=== PATIENT | female | born 1965 | race Caucasian/White ===

== ENCOUNTER 2020-09-14 15:40 | Outpatient (CLI) | payer OTHER | END 2020-09-14 15:41 | disposition home or self-care (01) | LOC: COV 15:40 | PROVIDERS: ATTEND Family Medicine | DX: R50.9 Fever, unspecified (principal); M79.10 Myalgia, unspecified site; R53.83 Other fatigue; J02.9 Acute pharyngitis, unspecified; R11.2 Nausea with vomiting, unspecified; Z20.828 Contact with and (suspected) exposure to other viral communicable diseases ==

== ENCOUNTER 2021-05-17 08:00 | Outpatient (CLI) | payer OTHER ==
[2021-05-17 19:53] LABS: BASOPHILS # (AUTO) 0.1 10^3/uL (0.0-0.1); BASOPHILS % (AUTO) 1.1 %; EOSINOPHILS # (AUTO) 0.1 10^3/uL (0.0-0.7); EOSINOPHILS % (AUTO) 1.1 %; HCT - HEMATOCRIT 39.9 % (37.0-47.0); HGB - HEMOGLOBIN 13.2 g/dL (12.0-16.0); LYMPHOCYTES # (AUTO) 1.4 10^3/uL (1.5-3.5); LYMPHOCYTES % (AUTO) 30.3 %; MEAN CORPUSCULAR HEMOGLOBIN 31.7 pg (27.0-31.0); MEAN CORPUSCULAR HGB CONC 33.1 g/dL (32.0-36.0); MEAN CORPUSCULAR VOLUME 95.9 fL (81.0-99.0); MEAN PLATELET VOLUME 11.9 fL (7.9-10.8); MONOCYTES # (AUTO) 0.3 10^3/uL (0.0-1.0); MONOCYTES % (AUTO) 5.9 %; NEUTROPHILS # (AUTO) 2.9 10^3/uL (1.5-6.6); NEUTROPHILS % (AUTO) 61.4 %; PLT - PLATELET COUNT 291 10^3/uL (130-450); RED BLOOD COUNT 4.16 10^6/uL (4.20-5.40); RED CELL DISTRIBUTION WIDTH 12.5 % (12.0-15.0); WHITE BLOOD COUNT 4.8 x10^3/uL (4.8-10.8)
[2021-05-17 20:05] LABS: ALBUMIN 4.8 g/dL (3.2-5.5); ALBUMIN/GLOBULIN RATIO 1.8 (1.0-2.2); BILIRUBIN,TOTAL 0.7 mg/dL (0.2-1.0); CALCIUM 9.8 mg/dL (8.5-10.3); CREATININE 0.7 mg/dL (0.4-1.0); POTASSIUM 4.1 mmol/L (3.5-5.0); TOTAL PROTEIN 7.5 g/dL (6.7-8.2)
[2021-05-25 18:17] LABS: 18 KD (IGG) BAND NON-REACTIVE; 23 KD (IGG) BAND NON-REACTIVE; 23 KD (IGM) BLOT NON-REACTIVE; 28 KD (IGG) BAND NON-REACTIVE; 30 KD (IGG) BAND NON-REACTIVE; 39 KD (IGG) BAND NON-REACTIVE; 39 KD (IGM) BLOT NON-REACTIVE; 41 KD (IGG) BAND REACTIVE; 41 KD (IGM) BLOT NON-REACTIVE; 45 KD (IGG) BAND NON-REACTIVE; 58 KD (IGG) BAND NON-REACTIVE; 66 KD (IGG) BAND NON-REACTIVE; 93 KD (IGG) BAND NON-REACTIVE
== END 2021-05-17 23:59 | disposition home or self-care (01) ==
LOC: LAB.S 08:00
PROVIDERS: ATTEND Physician Assistant Medical
DX: R51.9 Headache, unspecified (principal); W57.XXXA Bitten or stung by nonvenomous insect and other nonvenomous arthropods, initial encounter
CPT/HCPCS: 36415; 80053; 85025; 85651; 86617

== ENCOUNTER 2023-04-24 11:16 | Emergency (ER) | payer OTHER ==
--- OUTSIDE RECORDS SUMMARY | 2023-04-24 11:48 | EXTERNAL MEDICAL SUMMARY RPT | Continuity of Care Document ---
Author Name Unknown Address [address] [place] [address] Phone Organization [facility] Address [address] [place] [address] Phone Care Team Providers Care Fire Alarm Technician Name Role Phone Unavailable Unavailable Unavailable Dell Pena, Elijah Unavailable Unavailable Medications date description facility 2023-02-22 00:00 [facility] 2023-03-01 00:00 [facility] 2023-02-22 00:00 [facility] 2023-03-01 00:00 [facility] 2023-02-22 00:00 [facility]radiol [facility] 2023-03-01 00:00 [facility]radiol [facility] 2023-02-22 00:00 estradiol [facility] 2023-03-01 00:00 estradiol [facility] Problems date description facility 2023-02-21 00:00 Dysfunction of Eustachian tube [facility] 2023-02-21 00:00 Dysfunction of eustachian tube [facility] 2023-02-21 00:00 Other specified diso rders of Eustachian tube, left ear [facility] Procedures date description facility 2023-02-21 00:00 Visit Code Hold [facility] Social History date description facility 2023-02-21 00:00 Never smoker [facility] Vital Signs date measurement value units 2023-02-21 00:00 BMI 22.41 kg/m2 2023-02-21 00:00 BP_diastolic 77 mmHg 2023-02-21 00:00 BP_systolic 115 mmHg 2023-02-21 00:00 heart_rate 59 /min 2023-02-21 00:00 height_metric 165.1 cm 2023-02-21 00:00 height_standard 65 in 2023-02-21 00:00 respiration_rate 17 /min 2023-02-21 00:00 weight_metric 60.87 kg 2023-02-21 00:00 weight_standard 134.2 lb
[2023-04-24] MEDS ORDERED: KETOROLAC 60 MG/2 ML VIAL IM STA (12:07)
[2023-04-24] MEDS ORDERED: oxyCODONE 5 MG TABLET PO STA (12:08)
[2023-04-24] MEDS ORDERED: CYCLOBENZAPRINE 10 MG TABLET PO STA (12:08)
[2023-04-24] MEDS ORDERED: DEXAMETHASONE 10 MG/ML VIAL IM STA (12:08)
--- NOTE | 2023-04-24 12:09 | ED Physician Documentation ---
History of Present Illness - Stated complaint Stated Complaint: LOWER BACK PX - Chief complaint Chief Complaint: Back Pain - History obtained from History obtained from: Patient - Additonal information Additional information: 57-year-old woman with history of sciatica was bending over about a week ago picking up a stock bicycle and suddenly developed severe low back pain which got better slowly but then got much worse again yesterday. Its been its worse with twisting, bending and sitting. She denies saddle anesthesia, incontinence, fevers, lower extremity numbness or tingling or radiation of the pain. PD PAST MEDICAL HISTORY - Past Medical History Past Medical History: Yes Musculoskeletal: Chronic back pain - Present Medications Home Medications: Ambulatory Orders Medication Instructions Recorded Confirmed Cyclobenzaprine [Flexeril] 10 mg PO TID PRN #20 tablet 04/24/23 Ibuprofen [Motrin] 600 mg PO Q6H PRN #30 tab 04/24/23 Lidocaine Patch 5% [Lidoderm Patch] 1 patch TOP DAILY PRN #10 patch 04/24/23 Oxycodone HCl/Acetaminophen 1 - 2 each PO Q6H PRN #14 tablet 04/24/23 [Percocet 5-325 mg Tablet] predniSONE [Deltasone] 20 mg PO [id number] #21 tab 04/24/23 - Allergies Allergies/Adverse Reactions: Allergies Allergy/AdvReac Type Severity Reaction Status Date / Time No Known Drug Allergies Allergy Verified 04/24/23 11:33 - Social History Does the pt smoke?: No Smoking Status: Never smoker PD ED PE NORMAL - Vitals Vital signs reviewed: Yes - General General: Alert and oriented X 3, Other (Standing up and discomfort with moving) - Back Back: No spinal TTP, Other (Tender to the paralumbar muscles bilaterally) - Extremities Extremities: Other (The patient has equal and normal Achilles and patellar reflexes bilaterally. Normal sensation in all areas of the legs. Patient denies saddle anesthesia. Normal strength in flexion-extension at the ankles, knees, and flexion of the hips.) Results - Vitals Vitals: Vital Signs - 24 hr 04/24/23 11:30 Temperature 36.0 C L Heart Rate 71 Respiratory 16 Rate Blood Pressure 129/62 O2 Saturation 100 Oxygen O2 Source Room air - Rads (name of study) Lumbar spine x-ray showing no acute issues, chronic and degenerative changes better seen on prior MRI Relevant Findings:: Final report received, EMP independent interpretation of test PD Medical Decision Making - ED course ED course: 57-year-old woman with an acute exacerbation of low back pain, came on suddenly while lifting a heavy stuck object so consideration for compression fracture and an x-ray was done for same and negative. This patient has seemingly uncomplicated musculoskeletal back pain. The patient has no "red flags." Specifically denies IV drug use, fevers, incontinence, saddle anesthesia. Spinal epidural abscess was considered, given that the patient has no fever, is not diabetic, has no spinal tenderness, does not use IV drugs, and has no bilateral neurologic symptoms, the diagnosis of spinal epidural abscess is considered exceedingly unlikely. Departure - Departure Disposition: Home, Self Care Clinical Impression: Back pain Condition: Good Record reviewed to determine appropriate education?: Yes Instructions: ED Low Back Pain Injury Prescriptions: predniSONE [Deltasone] 20 mg PO [id number] #21 tab Cyclobenzaprine [Flexeril] 10 mg PO TID PRN #20 tablet PRN Reason: Spasms Lidocaine Patch 5% [Lidoderm Patch] 1 patch TOP DAILY PRN #10 patch PRN Reason: pain Ibuprofen [Motrin] 600 mg PO Q6H PRN #30 tab PRN Reason: Pain Oxycodone HCl/Acetaminophen [Percocet 5-325 mg Tablet] 1 - 2 each PO Q6H PRN #14 tablet PRN Reason: pain Comments: I sent your prescription electronically to [facility] in [place]. Heat, gentle stretching is advised and relative rest. Follow-up with your primary care physician on return home, consider rereferral to physical therapy. For the pain: 1. The ibuprofen nonsteroidal anti-inflammatory drugs should be your base and should be taken scheduled. You can also take Tylenol as needed but note that the oxycodone also has Tylenol in it so you should not take too much. 2. The prednisone steroid can be started tomorrow as you got a similar medication as a shot here. Best taken in the morning as it can give insomnia. 3. The lidocaine patches also should be used fairly regularly given lack of significant side effects. 4. The oxycodone/acetaminophen is a little more powerful and best used for severe pain. 5. Flexeril/cyclobenzaprine is a muscle relaxer, also slightly sedating. I am prescribing a short course of narcotic pain medication for you. These are potentially dangerous and addictive medications that should be used carefully. These medications may constipate you. Take an zkne-yzw-yqaohri stool softener (docusate) twice daily with plenty of water while taking these medications. If you go 24 hours without a bowel movement, take char-hzv-myfjkvu miralax, per package instructions. Do not drink or drive while taking these medications. If you received narcotic or sedating medications while in the emergency department, do not drive for 24 hours. Store this medication in a safe, secure place and out of reach of children. It is a violation of federal law to give or sell this medication to another person or to use in a manner other than prescribed. The ED will not refill narcotic prescriptions, including prescriptions lost or stolen. To dispose of unwanted medications: 1. [facility] provides a drop box for medication in pill form only (no liquids) 8:00 am to 4:30 p.m. Monday-Monday in the lobby of the [facility], [address] [place] [address]. Empty pills into ziplock bag before disposal. Call [phone] for information. 2.[employer] is a free service available to all [facility] residents. Go to [email or web address] Note that many narcotic pain relievers also contain Tylenol/acetaminophen. Please ensure that your total dose of acetaminophen from all sources does not exceed 3 g (3000 mg) per day. Forms: Activity restrictions
--- NOTE | 2023-04-24 12:40 | XRAY Report ---
PROCEDURE: Lumbar Spine 2 View INDICATIONS: back inj. Low back pain from twisting/lifting. TECHNIQUE: 2 views of the lumbar spine were acquired. COMPARISON: None. FINDINGS: Bones: 5 nex-czm-aofgklh vertebrae are present. Slight rightward curvature. Mild disc height loss at L4-5, L5-S1 and L2-3. Facet arthrosis L4-5 and L5-S1. Soft tissues: Overlying bowel gas pattern is normal. No suspicious soft tissue calcifications. Pun ctate calcified indications projecting of the right kidney, likely nephrolithiasis. IMPRESSION: No displaced fracture or traumatic subluxation. Mild, multilevel degenerative disc disease and lower lumbar facet arthrosis. Reviewed by: Paco Mallory on 04/24/2023 12:39 PM PDT Approved by: Paco Mallory on 04/24/2023 12:39 PM PDT Station ID: [id number]
[2023-04-24 13:06] VITALS: BP 122/60
== END 2023-04-24 13:01 | disposition home or self-care (01) ==
LOC: ED 11:16
DX: M54.50 Low back pain, unspecified (principal); X50.0XXA Overexertion from strenuous movement or load, initial encounter
CPT/HCPCS: 72100; 96372; 99284; A9270

== ENCOUNTER 2023-05-19 10:23 | Outpatient (CLI) | payer OTHER ==
[2023-05-19 14:53] LABS: BASOPHILS % (AUTO) 1.3 %; EOSINOPHILS # (AUTO) 0.1 10^3/uL (0.0-0.7); EOSINOPHILS % (AUTO) 4.4 %; HCT - HEMATOCRIT 40.2 % (37.0-47.0); LYMPHOCYTES # (AUTO) 1.2 10^3/uL (1.5-3.5); LYMPHOCYTES % (AUTO) 38.2 %; MEAN CORPUSCULAR HEMOGLOBIN 31.5 pg (27.0-31.0); MEAN CORPUSCULAR HGB CONC 32.3 g/dL (32.0-36.0); MEAN CORPUSCULAR VOLUME 97.3 fL (81.0-99.0); MEAN PLATELET VOLUME 11.2 fL (7.9-10.8); MONOCYTES # (AUTO) 0.3 10^3/uL (0.0-1.0); NEUTROPHILS # (AUTO) 1.5 10^3/uL (1.5-6.6); NEUTROPHILS % (AUTO) 45.5 %; PLT - PLATELET COUNT 278 10^3/uL (130-450); RED BLOOD COUNT 4.13 10^6/uL (4.20-5.40); RED CELL DISTRIBUTION WIDTH 12.9 % (12.0-15.0); WHITE BLOOD COUNT 3.2 x10^3/uL (4.8-10.8)
[2023-05-19 15:23] LABS: ESTIMATED AVERAGE GLUCOSE 97 mg/dL (70-100)
[2023-05-19 15:30] LABS: ALBUMIN 4.5 g/dL (3.2-5.5); ALBUMIN/GLOBULIN RATIO 1.9 (1.0-2.2); BILIRUBIN,TOTAL 0.8 mg/dL (0.2-1.0); CALCIUM 9.5 mg/dL (8.5-10.3); CREATININE 0.8 mg/dL (0.6-1.3); CRP - C-REACTIVE PROTEIN 0.6 mg/dL (<0.5); MAGNESIUM 2.2 mg/dL (1.7-2.3); POTASSIUM 3.9 mmol/L (3.5-4.5); TOTAL PROTEIN 6.9 g/dL (6.4-8.9); URIC ACID 5.3 mg/dL (2.3-6.6)
[2023-05-19 15:51] LABS: FERRITIN 26.7 ng/mL (11.0-306.8)
[2023-05-21 17:08] LABS: HDL-P (TOTAL) 36.2 umol/L (>=30.5); LDL SIZE 21.2 nm (>20.5); LDL-P 705 nmol/L (<1000); LP-INSULIN RESISTANCE SCORE <25 (<=45); SMALL LDL-P <90 nmol/L (<=527)
== END 2023-05-19 10:24 | disposition home or self-care (01) ==
LOC: LAB.S 10:23
PROVIDERS: ATTEND Naturopath
DX: M54.50 Low back pain, unspecified (principal); R20.2 Paresthesia of skin; H93.13 Tinnitus, bilateral; M62.81 Muscle weakness (generalized)
CPT/HCPCS: 36415; 80053; 81599; 82306; 82542; 82627; 82728; 82977; 83036; 83090; 83525; 83540; 83704; 83735; 84207; 84443; 84466; 84550; 85025; 85651; 86140

== ENCOUNTER 2024-05-08 08:19 | Outpatient (CLI) | payer OTHER ==
[2024-05-08 15:42] LABS: EOSINOPHILS # (AUTO) 0.1 10^3/uL (0.0-0.7); EOSINOPHILS % (AUTO) 2.6 %; HCT - HEMATOCRIT 40.2 % (37.0-47.0); HGB - HEMOGLOBIN 12.7 g/dL (12.0-16.0); LYMPHOCYTES # (AUTO) 1.4 10^3/uL (1.5-3.5); LYMPHOCYTES % (AUTO) 34.1 %; MEAN CORPUSCULAR HEMOGLOBIN 31.1 pg (27.0-31.0); MEAN CORPUSCULAR HGB CONC 31.6 g/dL (32.0-36.0); MEAN CORPUSCULAR VOLUME 98.5 fL (81.0-99.0); MEAN PLATELET VOLUME 11.9 fL (7.9-10.8); MONOCYTES # (AUTO) 0.4 10^3/uL (0.0-1.0); MONOCYTES % (AUTO) 8.8 %; NEUTROPHILS # (AUTO) 2.2 10^3/uL (1.5-6.6); NEUTROPHILS % (AUTO) 53.5 %; PLT - PLATELET COUNT 281 10^3/uL (130-450); RED BLOOD COUNT 4.08 10^6/uL (4.20-5.40); RED CELL DISTRIBUTION WIDTH 13.2 % (12.0-15.0); WHITE BLOOD COUNT 4.2 x10^3/uL (4.8-10.8)
[2024-05-08 16:05] LABS: % IRON SATURATION 23 % (20-50); ALBUMIN 4.5 g/dL (3.2-5.5); ALBUMIN/GLOBULIN RATIO 1.7 (1.0-2.2); ALKALINE PHOSPHATASE 47 IU/L (42-121); ALT ALANINE AMINOTRANSFERASE 12 IU/L (10-60); AST ASPARTATE AMINOTRANSFERASE 19 IU/L (10-42); BILIRUBIN,TOTAL 0.5 mg/dL (0.2-1.0); BUN - BLOOD UREA NITROGEN 11 mg/dL (6-20); CALCIUM 9.8 mg/dL (8.5-10.3); CARBON DIOXIDE - CO2 28 mmol/L (21-32); CHLORIDE 105 mmol/L (101-111); CHOL/HDL RATIO 2.1 (<4.4); CHOLESTEROL 222 mg/dL; CREATININE 0.7 mg/dL (0.6-1.3); CRP - C-REACTIVE PROTEIN < 0.5 mg/dL (<0.5); GFR - MDRD 86 (>89); GLUCOSE 92 mg/dL (74-104); HDL CHOLESTEROL 105 mg/dL; IRON 68 ug/dL (50-212); LDL CHOLESTEROL,CALCULATED 105 mg/dL; POTASSIUM 4.2 mmol/L (3.5-4.5); SODIUM 138 mmol/L (135-145); TOTAL IRON BINDING CAPACITY 293 ug/dL (250-450); TOTAL PROTEIN 7.1 g/dL (6.4-8.9); TRANSFERRIN 209 mg/dL (203-362); TRIGLYCERIDES 61 mg/dL; VLDL CHOLESTEROL 12 mg/dL
[2024-05-08 16:22] LABS: BILIRUBIN,URINE NEGATIVE (NEGATIVE); GLUCOSE, URINE (UA) NEGATIVE (NEGATIVE); KETONES,URINE (UA) NEGATIVE (NEGATIVE); LEUKOCYTE ESTERASE, URINE NEGATIVE (NEGATIVE); NITRITE,URINE NEGATIVE (NEGATIVE); OCCULT BLOOD,URINE NEGATIVE (NEGATIVE); PROTEIN,URINE NEGATIVE (NEGATIVE); UROBILINOGEN,URINE 0.2 (NORMAL) E.U./dL (NORMAL)
[2024-05-08 16:23] LABS: CLARITY,URINE CLEAR (CLEAR)
[2024-05-08 16:33] LABS: BACTERIA,URINE None Seen /HPF (None Seen); RBC,URINE 0-5 /HPF (0-5); SQUAMOUS EPITHELIAL CELL,UR FEW Squamous (<= Few); WBC,URINE 0-3 /HPF (0-5)
[2024-05-08 17:31] LABS: CA 125 10.9 U/mL (0.5-35.0)
[2024-05-08 17:40] LABS: FERRITIN 15.6 ng/mL (11.0-306.8)
[2024-05-08 21:32] LABS: ESTIMATED AVERAGE GLUCOSE 91 mg/dL (70-100); HEMOGLOBIN A1c% 4.8 % (4.27-6.07)
[2024-05-09 21:51] LABS: BACTERIAL VAGINOSIS DNA NEGATIVE (NEGATIVE); CANDIDA GLABRATA DNA NEGATIVE (NEGATIVE); CANDIDA GROUP DNA NEGATIVE (NEGATIVE); CANDIDA KRUSEI DNA NEGATIVE (NEGATIVE); TRICHOMONAS VAGINALIS DNA NEGATIVE (NEGATIVE)
== END 2024-05-08 08:20 | disposition home or self-care (01) ==
LOC: LAB.S 08:19
PROVIDERS: ATTEND Naturopath
DX: M54.50 Low back pain, unspecified (principal); M62.81 Muscle weakness (generalized); N93.8 Other specified abnormal uterine and vaginal bleeding; N39.0 Urinary tract infection, site not specified
CPT/HCPCS: 36415; 80053; 80061; 81001; 81514; 81599; 82306; 82378; 82728; 83036; 83090; 83525; 83540; 83615; 83721; 83735; 84466; 85025; 86140; 86304; 87086